=== PATIENT | female | born 1935 | race Caucasian/White ===

== ENCOUNTER 2018-09-20 06:21 | Day surgery (SDC) | payer MEDICARE, BC, MEDICAID ==
[2018-09-20] MEDS ORDERED: LIDOCAINE 4% (MPF) 5 ML INJ (07:00)
[2018-09-20] MEDS: CEFAZOLIN 1 GM INJ (07:00)
[2018-09-20] MEDS ORDERED: GENTAMICIN 80 MG INJ (07:01)
[2018-09-20] MEDS: DEXAMETHASONE 4 MG/ML 1 ML INJ (07:01)
[2018-09-20] MEDS ORDERED: TETRACAINE 0.5% 4 ML OPH (07:01)
[2018-09-20] MEDS ORDERED: NA HYALURONATE/CHONDROITIN 0.5 ML SYG (07:01)
[2018-09-20] MEDS ORDERED: EPINEPHrine 1 MG INJ (07:01)
[2018-09-20] MEDS: CARBACHOL 0.01% 1.5 ML OPH INJ (07:01)
[2018-09-20] MEDS ORDERED: MIDAZOLAM 1 MG/ML 2 ML INJ (07:08)
[2018-09-20] MEDS: TROPICAMIDE 1% 15 ML OPH OPER (07:33)
[2018-09-20] MEDS: MOXIFLOXACIN 0.5% 3 ML OPH OPER (07:33)
[2018-09-20] MEDS: CYCLOPENTOLATE/PHENYLEPH 2 ML OPH OPER (07:33)
[2018-09-20] MEDS: DICLOFENAC 0.1% 2.5 ML OPH OPER (07:34)
[2018-09-20] MEDS: SOD CHLORIDE 0.9% 1,000 ML IV (07:35)
[2018-09-20 08:16] LABS: ANION GAP 10 (5-13); BLOOD UREA NITROGEN 27 mg/dl (7-20); CALCIUM 10.3 mg/dl (8.4-10.2); CARBON DIOXIDE 33 mmol/L (21-31); CHLORIDE 102 mmol/L (97-110); CREATININE 0.88 mg/dl (0.44-1.00); GLUCOSE 70 mg/dl (70-220); POTASSIUM 4.1 mmol/L (3.5-5.1); SODIUM 145 mmol/L (135-144)
[2018-09-20] MEDS ORDERED: PROPOFOL 100 ML (08:31)
[2018-09-20] MEDS ORDERED: LIDOCAINE 1% (MPF) 10 ML INJ (08:56)
[2018-09-20] MEDS ORDERED: LABETALOL HCL 20MG INJ IV (09:00)
[2018-09-20] MEDS ORDERED: FENTAnyl 50 MCG/ML VIAL (09:00)
[2018-09-20] MEDS ORDERED: hydrALAzine 20 MG INJ IV (09:00)
[2018-09-20] MEDS ORDERED: ACETAMINOPHEN 325 MG TAB (09:35)
[2018-09-20] MEDS: ACETAMINOPHEN 325 MG TAB PO (10:08)
== END 2018-09-20 11:00 ==
LOC: SDS 06:21
DX: H25.12 Age-related nuclear cataract, left eye (principal); I12.9 Hypertensive chronic kidney disease with stage 1 through stage 4 chronic kidney disease, or unspecified chronic kidney disease; N18.9 Chronic kidney disease, unspecified; E11.9 Type 2 diabetes mellitus without complications; Z79.84 Long term (current) use of oral hypoglycemic drugs; Z79.4 Long term (current) use of insulin
CPT/HCPCS: 66984; 80048; 82962